=== PATIENT | female | born 1990 | race Caucasian/White ===

== ENCOUNTER 2020-12-12 17:53 | Emergency (ER) | payer SELFPAY ==
[~2020-12-12] VITALS: Ht 162.6 cm; Wt 79.4 kg
[2020-12-12 18:12] VITALS: BP 124/77
[2020-12-12] MEDS ORDERED: MORPHINE SULFATE 4 MG/ML SYR IVP ONE (18:45)
--- NOTE | 2020-12-12 19:03 | NUR ---
PT AMBULATED TO ER BED 6
[2020-12-12 19:15] LABS: BASOPHILS % (AUTO) 0.2 % (0.0-2.0); EOSINOPHILS % (AUTO) 0.2 % (0.0-4.0); HEMATOCRIT 37.8 % (36-48); HEMOGLOBIN 12.9 g/dL (12.0-16.0); LYMPHOCYTES % (AUTO) 7.3 % (20.5-51.1); MEAN CORPUSCULAR HEMOGLOBIN 30 pg (27-31); MEAN CORPUSCULAR HGB CONC 34 g/dL (33-37); MEAN CORPUSCULAR VOLUME 88.3 fL (80-94); MONOCYTES % (AUTO) 7.3 % (1.7-9.3); NEUTROPHILS # (AUTO) 11.9 K/uL (1.8-7.7); PLATELET COUNT (AUTO) 216 K/uL (140-450); RED BLOOD CELL COUNT(AUTO) 4.28 MIL/uL (4.20-5.40); RED CELL DISTRIBUTION WIDTH 13.2 % (11.6-13.7); WHITE BLOOD COUNT (AUTO) 14.1 K/uL (4.8-10.8)
[2020-12-12 19:25] LABS: APPEARANCE,URINE CLOUDY (CLEAR); BILIRUBIN,URINE NEGATIVE (NEGATIVE); BLOOD, URINE 2+ (NEGATIVE); COLOR,URINE AMBER (YELLOW); LEUKOCYTE ESTERASE ,URINE 1+ (NEGATIVE); NITRITE, URINE POSITIVE (NEGATIVE); UGLUCOSE NEGATIVE (NEGATIVE)
[2020-12-12 19:32] LABS: ALBUMIN 3.7 g/dL (3.4-5.0); ANION GAP 16.1 (8-16); CARBON DIOXIDE 23.3 mmol/L (21-32); CREATININE 0.9 mg/dL (0.6-1.3); POTASSIUM 3.4 mmol/L (3.5-5.1); TOTAL BILIRUBIN 0.7 mg/dL (0.0-1.0)
--- NOTE | 2020-12-12 19:43 | NUR ---
PATIENT REPORT RLQ PAIN ONSET YESTERDAY MORNING. NO OTHER COMPLAINTS OR CONCERNS FOLLOWING ASSESSMENT, DENIES NAUSEA OR VOMITING. REPORTS NO MEDICAL HX AND DENIES ALLERGIES
[2020-12-12 20:04] LABS: WBC,URINE 20-60 /HPF (0-5)
--- NOTE | 2020-12-12 20:12 | NUR ---
PT TAKEN TO CT
--- NOTE | 2020-12-12 20:23 | NUR ---
PT RETURN FROM CT
[2020-12-12] MEDS ORDERED: NACL 0.9% 1,000 ML IV ONE (21:15)
[2020-12-12] MEDS ORDERED: cefTRIAXone 1,000 MG VIAL ONE (21:37)
[2020-12-12] MEDS ORDERED: CEPH250C16 PO (21:56)
[2020-12-12] MEDS ORDERED: IBUP-2213 PO (22:01)
[2020-12-12] MEDS ORDERED: KETOROLAC 30 MG/ML VIAL IVP ONE (22:10)
--- NOTE | 2020-12-12 22:25 | NUR ---
PATIENT CLEARED FOR DISHCARGE WITH NO OTHER QUESTIONS FOLLOWING DIHSCARGE TEACHING. ADVISED TO FOLLOW UP WITH PCP AND RETURN IF CONDITION WORSENS.
[2020-12-12 22:30] VITALS: BP 111/68
== END 2020-12-12 22:25 | disposition home or self-care (01) ==
LOC: MED 17:53
DX: N12 Tubulo-interstitial nephritis, not specified as acute or chronic (principal)
CPT/HCPCS: 36415; 74177; 80053; 81001; 81025; 83605; 83690; 85025; 87040; 87086; 96365; 96375; 99285; J0696; J1885; J2270; J7030; Q9967

== ENCOUNTER 2021-09-11 16:15 | Emergency (ER) | payer SELFPAY ==
[~2021-09-11] VITALS: Ht 162.6 cm; Wt 78.9 kg
[~2021-09-11 16:15] MED LIST: CEPH250C16 PO; IBUP-2213 PO
[2021-09-11 16:24] VITALS: BP 129/63
[2021-09-11] MEDS ORDERED: IBUPROFEN 600 MG TAB PO ONE (16:30)
--- NOTE | 2021-09-11 17:03 | NUR ---
31 y/o female bib self with c/o abdominal pain that radiates to right side of abdomen x yesterday. Patient's pain level is 9/10. Patient denies being around anyone who is sick or eating new food. + nausea, -chills, -dysuria. Patient has had a fever. Medical History: Denies NKDA
--- NOTE | 2021-09-11 17:04 | NUR ---
Dr. Willett evaluating patient at bedside.
[2021-09-11] MEDS ORDERED: CEPH-588 PO (17:28)
[2021-09-11 18:53] VITALS: BP 129/63
== END 2021-09-11 18:51 | disposition home or self-care (01) ==
LOC: MED 16:15
DX: N12 Tubulo-interstitial nephritis, not specified as acute or chronic (principal)
CPT/HCPCS: 81002; 81025; 99283

== ENCOUNTER 2022-01-11 12:10 | Emergency (ER) | payer SELFPAY ==
[~2022-01-11] VITALS: Ht 157.5 cm; Wt 63.5 kg
[~2022-01-11 12:10] MED LIST changes: +CEPH-588 PO
[2022-01-11 12:21] VITALS: BP 104/65
--- NOTE | 2022-01-11 15:30 | NUR ---
CALLED BY ;NO ANSWER
[2022-01-11 16:09] LABS: APPEARANCE,URINE CLOUDY (CLEAR); BILIRUBIN,URINE NEGATIVE (NEGATIVE); BLOOD, URINE 2+ (NEGATIVE); COLOR,URINE YELLOW (YELLOW); LEUKOCYTE ESTERASE ,URINE TRACE (NEGATIVE); NITRITE, URINE POSITIVE (NEGATIVE); UGLUCOSE NEGATIVE (NEGATIVE)
[2022-01-11 16:29] LABS: RBC,URINE 11-20 (MOD) /HPF (0-5)
[2022-01-11 16:30] LABS: OTHER CASTS, URINE None Seen /LPF (None Seen)
[2022-01-11] MEDS ORDERED: CEPH500C16 PO (16:55)
== END 2022-01-11 18:09 | disposition home or self-care (01) ==
LOC: MED 12:10
DX: N12 Tubulo-interstitial nephritis, not specified as acute or chronic (principal)
CPT/HCPCS: 81001; 81025; 87086; 99283